=== PATIENT | female | born 2000 | race American Indian/Alaskan Native ===

== ENCOUNTER 2022-03-03 20:18 | Emergency (ER) | payer BC ==
[~2022-03-03] VITALS: Ht 167.6 cm; Wt 61.4 kg
[2022-03-03 20:30] VITALS: TEMP 98.1
[2022-03-03 20:50] LABS: COLLECTION METHOD CLEAN CATCH
[2022-03-03 21:02] LABS: SQUAMOUS EPITHELIAL 0-2 /hpf (0-10); URINE BACTERIA Rare /hpf (NONE SEEN)
[2022-03-03 21:05] LABS: URINE APPEARANCE Cloudy (CLEAR/HAZY); URINE COLOR Yellow (YELLOW)
[2022-03-03 21:06] LABS: URINE BLOOD 3+ (NEGATIVE); URINE GLUCOSE Negative (NEGATIVE); URINE KETONE Negative (NEGATIVE); URINE NITRATE Negative (NEGATIVE)
[2022-03-03 21:07] LABS: PH 5.5 (5.0-8.5); URINE PROTEIN(semi-quant) 1+ (NEGATIVE); URINE UROBILINOGEN 0.2 E.U/dL (0.2-1.0)
[2022-03-03] MEDS ORDERED: CEFTIN 250250 MG/TAB PO (21:38)
[2022-03-03 21:53] VITALS: BP 135/87; PULSE 91
== END 2022-03-03 22:17 | disposition home or self-care (01) ==
LOC: COL.ER 20:18
PROVIDERS: Nurse Practitioner
DX: N39.0 Urinary tract infection, site not specified (principal); Z28.310 Unvaccinated for COVID-19